=== PATIENT | male | born 1960 | race Caucasian/White ===

== ENCOUNTER 2017-12-27 21:23 | Inpatient (IN) | payer SELFPAY ==
[~2017-12-27] VITALS: Ht 170.1 cm; Wt 92.3 kg
--- NOTE | ~2017-12-27 | EKG ---
[place], [place] ELECTROCARDIOGRAM REPORT NAME: GODFREY RAMIREZ UNIT #: [id number] ROOM: 402 DOCTOR: AUGUST PEACE MD BIRTHDATE: [birth year] DOS: 12/28/2017 TIME: 0853 hours. IMPRESSION: 1. Normal sinus rhythm at 62 beats per minute. 2. First-degree heart block. 3. 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 4. No abnormal ECG. 5. No previous tracing is available for comparison. AUGUST PEACE MD CM:EKGRPT:ELECTROCARDIOGRAM REPORT [id number] AUGUST PEACE MD
--- NOTE | ~2017-12-27 | ST ---
[place], [place] EXERCISE STRESS TEST REPORT NAME: GODFREY RAMIREZ UNIT #: [id number] ROOM: 402 DOCTOR: KENISHA OLMOS,POLLO Daniels BIRTHDATE: [birth year] DOS: 12/28/2017 TREADMILL TEST WITH CARDIOLITE The patient is a 57-year-old gentleman admitted to [facility] with slight elevation of cardiac enzymes and chest pains. The patient was tested under standard Amrit protocol and he exercised for a total of 7 minutes and 35 seconds, completed 1 minute and 35 seconds of stage 3 and the test was stopped because of patient's fatigue. The patient reached a PMHR of 85%, peak MET level of 10, heart rate ranged between 61 beats per minute to 141 beats per minute and blood pressure ranged between 148 systolic over 100 diastolic to 186 systolic over 76 diastolic. The patient's baseline EKG showed sinus rhythm with a heart rate of 67 beats per minute, left axis deviation, right bundle-branch block. No significant ST-T abnormality. During the exercise and recovery phase, the patient did not develop any significant EKG abnormality or any angina-like symptoms. Good exercise tolerance. The patient was injected with nuclear scan during the peak phase of exercise. FINDINGS: 1. Normal EKG part of the treadmill test with nuclear scan at 85% PMHR. 2. Nuclear scan results will be reported by Dr. Yun, the webbing inspector separately later today. POLLO DE MD CM:STRESS:EXERCISE STRESS TEST REPORT [id number] POLLO DE MD
--- NOTE | ~2017-12-27 | CON ---
[place], [place] REPORT OF CONSULTATION NAME[id number] UNIT #: [id number] ROOM: 402 DOCTOR: AUGUST PEACE MD BIRTHDATE: [birth year] DOS: 12/28/2017 HISTORY OF PRESENT ILLNESS: This is a 57-year-old -[place] man with a history of hypertension and obesity. His blood pressure had returned to normal and he stopped taking his antihypertensives. He also has hyperlipidemia and has had a chronic right bundle branch block. He is hard of hearing and has had pneumonia as well. There is a notation of obstructive sleep apnea in his old notes. He has never had a heart attack, heart failure, stroke, diabetes mellitus, cancer, COPD and no kidney problems. He quit smoking about 20 years ago. Mother has a pacemaker, but there is no history of coronary artery disease. 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 When he took a deep breath in or moved his body side to side, this pain would get worse. It eventually subsided and disappeared. Two days ago while at work, he had a similar pain and also had shortness of breath, but he was working unusually hard and he had similar shortness of breath yesterday along with some pain. Pain was located over the lateral aspect of the chest. He did not have any anterior chest heaviness, pressure, jaw discomfort or any shoulder discomfort and no back pain. He was evaluated and assessed in Dr. Fanny Lewis's office, and an EKG was done, which demonstrated chronic right bundle branch block and a troponin level was slightly above normal and he was brought to the hospital for further evaluation. He has not had any PND, orthopnea, or swelling of the lower extremities and no pain in the legs when he walks. No dizziness or loss of consciousness. MEDICATIONS: He has not been on any medications until now and was placed on amlodipine. Systolic blood pressure was around 170 in the office. PHYSICAL EXAMINATION: GENERAL: This revealed a gentleman who is moderately obese. He is not anemic. There is no thyromegaly. He is not jaundiced, not cyanotic. He is not tachypneic. Temperature is normal. VITAL SIGNS: Pulse is regular at 64 beats per minute, blood pressure 147/89. NECK: JVP is normal. AJR is negative. There is no carotid bruit. HEART: There is no cardiomegaly. Cardiac auscultation reveals no murmurs or rubs. He has good pedal pulses and no edema in the lower extremities. RESPIRATORY: He is not tachypneic. Percussion note is normal. Auscultation reveals very good breath sounds bilaterally. There is no obvious chest wall tenderness. ABDOMEN: Somewhat large, supple, nontender. There is no organomegaly. Bowel sounds are normal, no bruit was present. LABORATORY DATA: An ECG done just now demonstrated normal sinus rhythm with a single PVC, first-degree heart block, complete right bundle branch block and left anterior hemiblock, which I believe is unchanged from that of yesterday. Troponin I level has been 0.069, 0.78 and 0.068. Basic metabolic panel was [place], [place] REPORT OF CONSULTATION NAME: GODFREY RAMIREZ UNIT #: [id number] ROOM: 402 DOCTOR: AUGUST PEACE MD BIRTHDATE: [birth year] normal. CBC was also normal. IMPRESSION: 1. This is a middle-aged gentleman with a couple of risk factors for coronary artery disease, has very atypical chest pain from myocardial ischemia. This pain suggests intercostal strained muscles rather than myocardial ischemia. It has settled down. Slightly increased troponin I level is of some concern, but his blood pressure was high and he has worked very hard, more than he normally does, which may have caused some leak of troponin I level. I agree with performing a Cardiolite study to exclude significant myocardial ischemia. 2. Hyperlipidemia is present with an LDL of 157. I think this is probably a good idea to place him on small dose of a statin drug to lower the LDL to about 100. 3. Hypertension. I would before an PRESTON inhibitor for blood pressure control. I thank you for this consult. AUGUST PEACE MD CM:CONSTR:REPORT OF CONSULTATION 0857 12/28/17 1554 interface FANNY LEWIS MD
--- NOTE | ~2017-12-27 | WRIGHTHP ---
[place], [place] PATIENT HISTORY AND PHYSICAL EXAM NAME: GODFREY RAMIREZ UNIT #: [id number] ROOM: 402 DOCTOR: DENISE ROCHA MD BIRTHDATE: [birth year] DOS: 12/27/2017 HISTORY OF PRESENT ILLNESS: The patient is 57 years old. He was seen in the office yesterday with complaint of chest pain. The pain was mostly in the left side of the chest, but he seemed to have some discomfort when he took a deep breath. He also denied having any retrosternal chest pain, any nausea, any emesis. Does not have any palpitations; but he does have some shortness of breath on exertion. PAST MEDICAL HISTORY: Significant for: 1. Benign hypertension. 2. Hyperlipidemia. The patient has not been taking medications for either one of these for almost a year. Last hospitalized in 08/2015 with chest pain. At that time also, he underwent a stress test, which was negative. SOCIAL HISTORY: Nonsmoker, does not use any alcohol. PHYSICAL EXAMINATION: GENERAL: The patient is awake and alert and oriented. VITAL SIGNS: Graphic trend shows a pressure of 170/70 in the office, here it is 158 systolic; pulse of 60; respirations 20; temperature 98.7. LUNGS: Clear. HEART: Regular. ABDOMEN: Obese, soft. EXTREMITIES: Without any edema. ASSESSMENT AND PLAN: 1. Left-sided chest pain, most likely atypical, pleuritic in nature. The patient was admitted, but the enzymes did go up and troponin was 0.068, 0.078, then it came down to 0.074. Dr. Yun was consulted. He had cleared him to have a stress test and depending on the stress test we will decide on further treatment plan. He should be able to go home today. 2. Benign hypertension. We will start him on low dose of lisinopril. 3. Mixed hyperlipidemia, add Zocor. Advised weight loss. [place], [place] PATIENT HISTORY AND PHYSICAL EXAM NAME: GODFREY RAMIREZ UNIT #: [id number] ROOM: 402 DOCTOR: DENISE ROHCA MD BIRTHDATE: [birth year] DENISE ROCHA MD CM:HISPHYS:PATIENT HISTORY AND PHYSICAL EXAMINATION [id number] DENISE ROCHA MD 12/28/17 0954 interface
[~2017-12-27 21:23] MED LIST: ACETAMINOPHEN-H1 TA2 PO; AMLODIPINE BESY1 TAB PO; CIPRO500 MG PO; DAYPRO600 M1 PO; Motrin,Rufen800 MG PO; SEPTRA DS 800 M1 TAB PO; VICODIN 5/500 505 MG PO; ZOCOR10 MG PO
[2017-12-27 21:26] VITALS: BP 147/89
[2017-12-27 21:56] VITALS: BP 147/89
[2017-12-27 23:28] LABS: BASO # 0.1 10*3/uL (0.0-0.1); BASO % 0.5 % (0.0-1.0); EOS # 0.1 10*3/uL (0.0-0.4); HEMATOCRIT 40.4 % (42.0-52.0); HEMOGLOBIN 13.3 g/dl (14.0-18.0); LYMPH # 1.4 10*3/uL (1.3-4.4); LYMPH % 15.1 % (27.0-41.0); MEAN CELL VOLUME 95.5 fl (80.0-94.0); MEAN CORPUSCULAR HGB 31.4 pg (27.0-31.0); MEAN CORPUSCULAR HGB CONC 32.9 g/dl (33.0-37.0); MEAN PLATELET VOLUME 12.4 fl (9.6-12.3); MONO # 0.7 10*3/uL (0.1-1.0); MONO % 7.5 % (3.0-9.0); NEUT % 75.6 % (47.0-73.0); NUCLEATED RED BLOOD CELL 0.1 10*3/uL (0.0-0.0); NUCLEATED RED BLOOD CELL 0.5 % (0.0-0.0); PLATELET COUNT AUTOMATED 234 10*3/uL (130-400); RED BLOOD COUNT 4.23 10*6/uL (4.50-5.90); RED CELL DISTRI WIDTH 14.2 % (0-14.5); WHITE BLOOD COUNT 9.3 10*3/uL (4.8-10.8)
[2017-12-27 23:45] LABS: BUN 15 mg/dl (7-24); CHLORIDE 106 mmol/L (98-107); CHOLESTEROL 239 mg/dL (<200); CREATININE 1.12 mg/dL (0.70-1.30); HDL CHOLESTEROL 55 mg/dl (40-60); LDL CHOLESTEROL 157 mg/dL (9-159); POTASSIUM 4.1 mmol/L (3.5-5.1); SODIUM 140 mmol/L (136-145); TRIGLYCERIDES 134 mg/dl (<150); VLDL CHOLESTEROL 27 mg/dL (6-40)
[2017-12-27 23:50] LABS: TROPONIN I 0.074 ng/ml (<0.045)
[2017-12-28] VITALS: BP 147/89
[2017-12-28 08:00] VITALS: BP 158/88
[2017-12-28] MEDS ORDERED: PRINIVIL10 MG PO (08:54)
[2017-12-28] MEDS ORDERED: ASPIRIN ADULT L81 M1 PO (08:54)
[2017-12-28] MEDS ORDERED: ZOCOR10 MG PO (08:54)
== END 2017-12-28 14:15 | disposition left against medical advice (07) | DRG 313 ==
LOC: 4E 21:23
PROVIDERS: Internal Medicine
PROC: 4A02XM4 Measurement of Cardiac Total Activity, External Approach (ICD-10-PCS; principal; 2017-12-28)
PROC: 3E073KZ Introduction of Other Diagnostic Substance into Coronary Artery, Percutaneous Approach (ICD-10-PCS; principal; 2017-12-28)
DX: R07.89 Other chest pain (principal); E78.2 Mixed hyperlipidemia; I10 Essential (primary) hypertension; Z53.21 Procedure and treatment not carried out due to patient leaving prior to being seen by health care provider

== ENCOUNTER 2021-06-20 14:24 | Emergency (ER) | payer BC ==
[~2021-06-20] VITALS: Ht 170.1 cm; Wt 83.9 kg
[~2021-06-20 14:24] MED LIST changes: +ASPIRIN ADULT L81 M1 PO; +PRINIVIL10 MG PO
[2021-06-20 14:43] VITALS: BP 142/78
== END 2021-06-20 17:30 | disposition home or self-care (01) ==
LOC: ED 14:24
DX: S80.01XA Contusion of right knee, initial encounter (principal); M25.461 Effusion, right knee; Z79.899 Other long term (current) drug therapy; Z79.82 Long term (current) use of aspirin; Z98.890 Other specified postprocedural states; W22.8XXA Striking against or struck by other objects, initial encounter; Y93.89 Activity, other specified; Y92.89 Other specified places as the place of occurrence of the external cause; Y99.8 Other external cause status

== ENCOUNTER → 2021-09-09 | Outpatient (CLI) | payer BC | END | disposition home or self-care (01) | LOC: RAD 09:46 | PROVIDERS: ATTEND Internal Medicine | DX: U07.1 COVID-19 (principal); R06.02 Shortness of breath ==

== ENCOUNTER → 2021-10-02 | Outpatient (CLI) | payer BC ==
[~2021-10-02] MED LIST changes: +ELIQUIS5 M1 PO
== END | disposition home or self-care (01) ==
LOC: US 13:50
PROVIDERS: ATTEND Internal Medicine
DX: I82.401 Acute embolism and thrombosis of unspecified deep veins of right lower extremity (principal)

== ENCOUNTER 2022-05-14 10:29 | Emergency (ER) | payer OTHER, BC ==
[~2022-05-14] VITALS: Ht 170.1 cm; Wt 83.9 kg
[2022-05-14 10:39] VITALS: BP 160/97
[2022-05-14] MEDS ORDERED: CYCLOBENZAPRINE5 M3 PO (15:22)
[2022-05-14] MEDS ORDERED: HYDROCODONE-AC1 EAC1 PO (15:22)
[2022-05-14] MEDS ORDERED: NAPROSYN500 MG PO (15:22)
[2022-05-14] MEDS ORDERED: MEDROL DOSEPAK4 MG PO (15:22)
== END 2022-05-14 15:30 | disposition home or self-care (01) ==
LOC: ED 10:29
DX: S39.012A Strain of muscle, fascia and tendon of lower back, initial encounter (principal); Z88.1 Allergy status to other antibiotic agents; Z98.890 Other specified postprocedural states; W22.8XXA Striking against or struck by other objects, initial encounter; Y93.89 Activity, other specified; Y92.89 Other specified places as the place of occurrence of the external cause; Y99.8 Other external cause status

== ENCOUNTER → 2023-03-17 | Outpatient (CLI) | payer BC ==
[~2023-03-17] MED LIST changes: +CYCLOBENZAPRINE5 M3 PO; +HYDROCODONE-AC1 EAC1 PO; +MEDROL DOSEPAK4 MG PO; +NAPROSYN500 MG PO
== END | disposition home or self-care (01) ==
LOC: LAB 00:39 → CARD 00:39
PROVIDERS: ATTEND Internal Medicine
DX: R94.31 Abnormal electrocardiogram [ECG] [EKG] (principal); R07.9 Chest pain, unspecified; D64.9 Anemia, unspecified

== ENCOUNTER → 2023-07-04 | Outpatient (CLI) | payer BC | END | disposition home or self-care (01) | LOC: RAD 15:27 | PROVIDERS: ATTEND Internal Medicine | DX: U07.1 COVID-19 (principal) ==

== ENCOUNTER → 2024-09-21 | Outpatient (CLI) | payer BC ==
[~2024-09-21] MED LIST changes: +Regadenoson 0.4 MG/5 ML SYR IV ONE
== END | disposition home or self-care (01) ==
LOC: CARD 01:23
PROVIDERS: ATTEND Internal Medicine
DX: I65.23 Occlusion and stenosis of bilateral carotid arteries (principal); I10 Essential (primary) hypertension; R51.9 Headache, unspecified; R07.9 Chest pain, unspecified; M79.662 Pain in left lower leg; M51.379 Other intervertebral disc degeneration, lumbosacral region without mention of lumbar back pain or lower extremity pain; K80.20 Calculus of gallbladder without cholecystitis without obstruction

== ENCOUNTER → 2024-09-24 | Outpatient (CLI) | payer BC ==
[~2024-09-24] MED LIST changes: -Regadenoson 0.4 MG/5 ML SYR IV ONE
== END | disposition home or self-care (01) ==
LOC: CARD 08:35 → CT 11:00
PROVIDERS: ATTEND Internal Medicine
DX: R90.82 White matter disease, unspecified (principal); I67.82 Cerebral ischemia; I51.7 Cardiomegaly; R53.1 Weakness; R51.9 Headache, unspecified; R42 Dizziness and giddiness; R06.02 Shortness of breath

== ENCOUNTER → 2024-11-12 | Outpatient (CLI) | payer BC | END | disposition home or self-care (01) | LOC: US 14:01 | PROVIDERS: ATTEND Internal Medicine | DX: I97.630 Postprocedural hematoma of a circulatory system organ or structure following a cardiac catheterization (principal); Z95.4 Presence of other heart-valve replacement ==